=== PATIENT | female | born 1985 | race Caucasian/White ===

== ENCOUNTER → 2023-07-18 | Emergency (ER) | payer OTHER ==
[~2023-07-18] VITALS: Ht 177.8 cm; Wt 70.0 kg
[~2023-07-18] MED LIST: CefTRIAXone 500MG IM Kit w/LIDOcaine (for pt below or = to 150kg) IM ONE; LEVONORGESTREL 1.5MG tablet 1.5 MG TABLET PO ONE; TINIDAZOLE 500 MG TABLET PO ONE; azithromycin 250mg tablet PO ONE; ondansetron 4mg rapidly disintigrating tab PO ONE
[2023-07-18 18:53] VITALS: BP 129/94; PULSE 101; TEMP 97.6; O2SAT 98
[2023-07-18 22:12] LABS: URINE AMPHETAMINE SCREEN NEGATIVE (Neg); URINE BARBITUATE SCREEN NEGATIVE (Neg); URINE BENZODIAZEPINES SCREEN NEGATIVE (Neg); URINE CANNABINOID SCREEN NEGATIVE (Neg); URINE COCAINE SCREEN NEGATIVE (Neg); URINE METHADONE SCREEN NEGATIVE (Neg); URINE OPIATE SCREEN NEGATIVE (Neg); URINE PHENCYCLIDINE SCREEN NEGATIVE (Neg)
[2023-07-19 06:50] VITALS: RESP 18
== END | disposition home or self-care (01) ==
LOC: ER 18:37 → EEVIPCON 18:37
DX: T76.21XA Adult sexual abuse, suspected, initial encounter (principal); T23.112A Burn of first degree of left thumb (nail), initial encounter; T23.122A Burn of first degree of single left finger (nail) except thumb, initial encounter; X08.8XXA Exposure to other specified smoke, fire and flames, initial encounter; Y93.89 Activity, other specified; Y92.89 Other specified places as the place of occurrence of the external cause; Y99.8 Other external cause status
CPT/HCPCS: 80305; 96372; 99284; J0696